=== PATIENT | female | born 1955 | race Caucasian/White ===

== ENCOUNTER 2024-05-16 14:58 | Emergency (ER) | payer MEDICARE ==
--- NOTE | 2024-05-16 15:00 | ERPHSYRPT ---
- History of Present Illness Time Seen by Provider: 05/16/24 15:00 Source: patient Exam Limitations: no limitations
[2024-05-16 15:17] VITALS: TEMP 97.7
--- NOTE | 2024-05-16 15:36 | ERPHSYRPT ---
- History of Present Illness Time Seen by Provider: 05/16/24 15:00 Source: patient, family Exam Limitations: no limitations Patient Subjective Stated Complaint: pt brought to ED by grandson with 8/10 bilat. mouth pain. Triage Nursing Assessment: pt brought to ER by grandson with 8/10 bilat. mouth/tooth pain. states pain started a couple days ago, hypertensive, gait steady, pulses normal, skin w/n/d, right side of face appears to be slightly swo llen, pt doesn't appear to be in any distress. Physician History: This is a morbidly obese 69-year-old white female patient who was brought into the emergency department by the patient's grandson because of right side intraoral, upper gingival and dental pain with redness and swelling externally. Patient noticed pain last week but it seemed to improve a bit but then in the last 24 hours the pain was worse and she noticed redness and swelling externally. Patient does have a history of hypertension and is on losartan. She has a history of CHF, asthma and COPD. Patient states that she has been waiting to get her insurance before she is able to see a dentist. Patient states she has had Keflex in the past without any ill effects. Patient also states that she can take Branscomb 5/325. Timing/Duration: gradual onset, intermittent, weeks Severity: mild (Over 1 week moderate) ENT Location: facial (Right external redness swelling), dental (Right upper molar/dental pain) Prearrival Treatment: no prearrival treatment Modifying Factors: Improves With: other (Mastication worsens) Associated Symptoms: tooth pain (In the region of right upper molars) Allergies/Adverse Reactions: clarithromycin [From Biaxin] Allergy (Verified 05/16/24 15:20) Penicillins Allergy (Verified 05/16/24 15:18) propoxyphene [From Darvon] Allergy (Verified 05/16/24 15:18) Home Medications: Levothyroxine Sodium [Levothyroxine] 175 mcg PO DAILY 05/16/24 [History] Losartan Potassium 5 mg PO DAILY 05/16/24 [History] Meloxicam 15 mg [Meloxicam 15 MG] 15 mg PO HS 05/16/24 [History] Omeprazole 40 mg PO HS 05/16/24 [History] Rosuvastatin Calcium 10 mg PO HS 05/16/24 [History] Topiramate 100 mg PO BID 05/16/24 [History] Hx Tetanus, Diphtheria Vaccination/Date Given: Yes Hx Influenza Vaccination/Date Given: Yes Hx Pneumococcal Vaccination/Date Given: Yes Travel Risk - International Travel Have you traveled outside of the country in past 3 weeks: No - Emerging Infectious Disease Are you exhibiting symptoms associated with any current EIDs: No - Review of Systems Constitutional: No Symptoms Eyes: No Symptoms Ears, Nose, & Throat: No Symptoms Respiratory: No Symptoms Cardiac: No Symptoms Abdominal/Gastrointestinal: No Symptoms Genitourinary Symptoms: No Symptoms Musculoskeletal: No Symptoms Skin: No Symptoms Neurological: No Symptoms Psychological: No Symptoms Endocrine: No Symptoms Hematologic/Lymphatic: No Symptoms Immunological/Allergic: No Symptoms All Other Systems: Reviewed and Negative - Past Medical History Pertinent Past Medical History: Yes Cardiac History: Congestive Heart Failure, Hypertension Respiratory History: Asthma, COPD - Past Surgical History Past Surgical History: Yes Other Surgical History: two back surgeries (fused discs) and neck surgery (ruptured disc) - Social History Smoking Status: Never smoker Exposure to second hand smoke: No Drug Use: none - Social Determinants of Health Will the patient participate in the screening: Yes Do you worry about a steady place to live?: No Do you have any problems with any of the following?: No known problems In the past 12 months,have you had to go without utilities?: No Transportation Issues: No Has anyone in your support network made you feel unsafe?: No Have you or anyone in your house had to go without enough: No - Nursing Vital Signs Nursing Vital Signs: Initial Vital Signs Temperature 97.7 F 05/16/24 15:03 Pulse Rate 74 05/16/24 15:03 Blood Pressure 210/82 05/16/24 15:03 O2 Sat by Pulse Oximetry 97 05/16/24 15:03 Pain Scale Pain Intensity 8 - Physical Exam General Appearance: no apparent distress, alert, anxiety, obese Eye Exam: bilateral eye: normal inspection, PERRL, EOMI Ear Exam: bilateral ear: auricle normal Nasal Exam: normal inspection Throat Exam: pharynx normal, dental tenderness (Right upper molar and gingival region. Generalized poor dentition) Cardiovascular/Respiratory Exam: chest non-tender, no respiratory distress Abdominal Exam: non-tender Neurologic Exam: alert, oriented x 3, cooperative, entertainment musician II-XII nml as tested, nml cerebellar function, nml station & gait, sensation nml Skin Exam: warm, dry, other (Mild right side cheek swelling and redness) SpO2 Interpretation: normal SpO2: 97 O2 Delivery: Room Air - Course Nursing assessment & vital signs reviewed: Yes - Progress Progress: unchanged, pain not gone completely Progress Note: 05/16/24 15:59 Medical decision making and the assignment of low complexity to this patient's medical issue today is based on review of the patient's past medical history, reviewed patient's medication list, reviewed patient drug allergy list, history present illness and physical findings on examination. The workup in this patient does not require any laboratory radiographic studies. Counseled pt/family regarding: diagnosis, need for follow-up Medical Desision Making - Independent Historian Additional History obtained from: Family - Diagnostic Testing Diagnostic test were ordered, analyzed, and reviewed by me: No - Risk of complications The pt has a mod risk of morbidity or mortality based on: Need for prescription drug management - Departure Departure Disposition: Home Clinical Impression: Dental caries Condition: Stable Critical Care Time: No Additional Instructions: Take your medications as prescribed. Call the dentist today to make arrangements for follow-up appointment for further evaluation and management. Prescriptions: Hydrocodone/APAP 5/325 [Branscomb 5/325 mg] 1 each PO Q8H PRN PRN #6 tablet MDD 3 PRN Reason: Pain Cephalexin Mh 500 mg [Keflex 500 mg] 500 mg PO TID #21 cap
[2024-05-16] MEDS ORDERED: XYLOCAINE 1% HCL 20 ML MDV ONE (15:54)
[2024-05-16] MEDS ORDERED: NORCO 5/325 MG ONE (15:54)
[2024-05-16] MEDS ORDERED: Rocephin 1000 MG INJ ONE (15:54)
[2024-05-16] MEDS: NORCO 5/325 MG PO ONE (15:55)
[2024-05-16] MEDS: Rocephin 1000 MG INJ IM ONE (15:57)
[2024-05-16 16:31] VITALS: BP 164/85; PULSE 68; RESP 18; O2SAT 96
== END 2024-05-16 16:31 | disposition home or self-care (01) ==
LOC: ED 14:58
DX: K02.9 Dental caries, unspecified (principal); K08.89 Other specified disorders of teeth and supporting structures; I11.0 Hypertensive heart disease with heart failure; I50.9 Heart failure, unspecified; Z79.891 Long term (current) use of opiate analgesic; Z79.899 Other long term (current) drug therapy
CPT/HCPCS: 96372; 99283; J0696; A9270-GY